=== PATIENT | female | born 1985 | race Hispanic/Latino ===

== ENCOUNTER 2021-10-11 16:45 | Emergency (ER) | payer BC, MEDICAID, OTHER ==
[~2021-10-11] VITALS: Ht 154.9 cm; Wt 76.2 kg
[2021-10-11 17:38] LABS: BASOPHILS % (AUTO) 0.3 % (0.0-5.0); EOSINOPHILS % (AUTO) 0.4 % (0.0-8.0); HEMATOCRIT 37.4 % (36-48); LYMPHOCYTES % (AUTO) 20.3 % (21.0-51.0); MEAN CORPUSCULAR HEMOGLOBIN 30.8 pg (27.0-33.0); MEAN CORPUSCULAR HGB CONC 34.5 g/dL (32.0-36.0); MEAN CORPUSCULAR VOLUME 89.3 fL (79-99); MONOCYTES % (AUTO) 8.5 % (3.0-13.0); NEUTROPHILS % (AUTO) 70.2 % (40.0-77.0); PLATELET COUNT (AUTO) 181 K/uL (130-400); RED BLOOD CELL COUNT(AUTO) 4.19 MIL/uL (4.00-5.50); RED CELL DISTRIBUTION WIDTH 11.6 % (11.0-15.5); WHITE BLOOD COUNT (AUTO) 6.8 K/uL (4.8-10.8)
[2021-10-11 17:43] LABS: APPEARANCE,URINE CLOUDY (CLEAR); BILIRUBIN,URINE NEGATIVE (NEGATIVE); COLOR,URINE YELLOW (YELLOW); GLUCOSE, URINE (UA) NEGATIVE (NEGATIVE); KETONES,URINE NEGATIVE (NEGATIVE); LEUKOCYTE ESTERASE ,URINE NEGATIVE (NEGATIVE); NITRATE,URINE NEGATIVE (NEGATIVE); OCCULT BLOOD,URINE MODERATE (NEGATIVE); PROTEIN,URINE NEGATIVE (NEGATIVE); UROBILINOGEN,URINE 0.2 mg/dL (0.2-1.0)
[2021-10-11 17:47] LABS: CREATININE 0.7 mg/dL (0.5-1.5); POTASSIUM 3.8 mmol/L (3.5-5.1)
[2021-10-11 17:51] LABS: ALBUMIN 3.9 g/dL (3.5-5.0); TOTAL PROTEIN, SERUM 7.9 g/dL (6.0-8.3)
[2021-10-11 17:51] LABS: HCG,QUALITATIVE URINE NEGATIVE (NEGATIVE)
[2021-10-11 18:03] LABS: RBC,URINE 0-1 /HPF (0-1); WBC,URINE 0-1 /HPF (0-1)
[2021-10-11 18:04] LABS: AMORPHOUS SEDIMENT,UR Moderate /LPF (None Seen); BACTERIA,URINE Few /HPF (None Seen); SQUAMOUS EPITHELIAL CELL,UR Rare /HPF (0-2)
[2021-10-11] MEDS ORDERED: NAPR-1180 PO (18:29)
[2021-10-11] MEDS ORDERED: CYCL10TA16 PO (18:29)
[2021-10-11] MEDS ORDERED: KETOROLAC 60 MG VIAL (30MG/ML) IM ONE (18:30)
[2021-10-11 18:44] VITALS: BP 121/72
== END 2021-10-11 18:50 | disposition home or self-care (01) ==
LOC: EDH 16:45
DX: S39.013A Strain of muscle, fascia and tendon of pelvis, initial encounter (principal); X58.XXXA Exposure to other specified factors, initial encounter; Y93.89 Activity, other specified; Y92.89 Other specified places as the place of occurrence of the external cause; Y99.8 Other external cause status
CPT/HCPCS: 99284; 76856; 80053; 85025; 81001; 81025; 36415; 96372; J1885